=== PATIENT | male | born 1990 | race Asian ===

== ENCOUNTER 2021-05-18 19:33 | Emergency (ER) | payer BC | END 2021-05-18 19:46 | disposition home or self-care (01) | LOC: JVIRT 19:33 | DX: Z11.52 Encounter for screening for COVID-19 (principal) | CPT/HCPCS: C9803; Q3014-GT; U0003; U0005 ==

== ENCOUNTER 2021-05-22 12:34 | Emergency (ER) | payer BC | END 2021-05-22 12:47 | disposition home or self-care (01) | LOC: JVIRT 12:34 | DX: R53.1 Weakness (principal); Z20.822 Contact with and (suspected) exposure to COVID-19 | CPT/HCPCS: C9803; Q3014-GT; U0003; U0005 ==